=== PATIENT | male | born 1970 | race Caucasian/White ===

== ENCOUNTER 2020-04-03 17:39 | Emergency (ER) | payer OTHER, SELFPAY ==
[2020-04-03 18:14] VITALS: BP 95/61; PULSE 105; RESP 18; TEMP 37.4; O2SAT 100; BMI 24.2
--- NOTE | 2020-04-03 20:06 | ED_ITS ---
HPI - Skin/Abscess/Foreign Bdy General Chief complaint: Skin/Abscess/Foreign Body Stated complaint: rash History of Present Illness HPI narrative: Patient presents to the ED for rash on both upper extremities. Patient states rash is itchy. Patient [place] woke [place] with rash is on both upper extremities. Patient states no swelling of lips, swelling of tongue, sensation of throat closing, chest pain, or shortness of breath. Related Data Previous Rx's Medication Instructions Recorded hydrocortisone 1 applic TOPICAL BID #30 g 04/03/20 Allergies Allergy/AdvReac Type Severity Reaction Status Date / Time No Known Allergies Allergy Mild NOT Verified 03/23/20 08:21 APPLICABLE Review of Systems Review of Systems: Patient presents to ED for bilateral upper extremity rash that is itchy. Patient denies any fever, chills, swelling of upper extremities, nausea, vomiting, neck stiffness, headache, dizziness, swelling of lips, swelling of tongue, sensation of throat closing, abdominal pain, chest pain, shortness of breath, diarrhea, vomiting, paralysis, numbness /tingling, headache, or any other concerning symptoms. Yes all other systems are reviewed and are negative [facility] Past Medical History Surgical History History of removal of neck cyst Hx of heart artery stent Family History Family History (Updated 03/23/20 @ 08:24 by Deedee Vega PENDING SALE TO [facility]) Father Cancer Mother Diabetes Hypertension CVD (cardiovascular disease) Brother Myocardial infarction Social History Social History Alcohol intake: current Alcohol type: beer, wine and hard liquor Smoking Status: Current every day smoker Smoked in Last 30 Days: Yes Use of substances other than those prescribed or required for medical reasons: No Advance Directives: No Advance Directives Information Provided: No Physical Exam Vital Signs: Vital Signs: Vital Signs Temp Pulse Resp BP Pulse Ox 04/03/20 18:14 99.3 F 105 H 18 95/61 100 Body Mass Index 24.2 Const: General: cooperative, healthy appearing, comfortable and no acute distress Orientation/consciousness: oriented to person, oriented to place, oriented to time and patient oriented x3 HENMT: Other: Negative for any swelling of lips, tongue, or uvula Head: Yes normal to inspection Eyes: General: appearance normal, both eyes and all related structures Neck: Neck: Yes normal visual inspection, Yes full ROM, Yes no lymphadenopathy, Yes no meningeal signs, No positive Brudzinski's sign and No positive Kernig's sign Chest: Chest palpation & inspection: normal inspection of the chest and normal palpation of entire chest wall Resp: Effort & Inspection: normal respiratory effort and no audible wheezes Auscultation: clear to auscultation bilaterally, no crackles, no rales, no rhonchi and no wheezes Cardio: Jugular venous distension: no JVD Heart sounds: S1 normal heart sound present GI: Inspection: Yes normal to inspection Palpation (GI): Soft to palpation, not firm, nontender, no guarding and not rigid : General: No CVA tenderness and Yes no CVA tenderness Back/Spine/Pelvis: Back: no CVA tenderness, No CVA tenderness and No back tenderness Skin: Other: positive for dermatitis like rash on both upper extremities. Ne gative for any warm erythema to indicate cellulitis. Negative for any bull's eye rash to indicate tick bite. Neuro: General: oriented to person, oriented to place, oriented to time, patient oriented x3, gait normal, no meningeal signs and CN's II-XI intact bilaterally Cranial nerves: Yes CN's II-XII intact bilaterally Extrem: General: Yes normal to inspection and Yes full ROM Psych: Appearance: grossly normal, well kempt and not disheveled Course Course Course Narrative: History physical exam indicate contact dermatitis. Patient will be discharged with steroid. Reevaluation(s) Reevaluation #1: Patient is safe for discharge. MDM - Skin/Abscess/Foreign Bdy MDM Narrative Medical decision making narrative: History physical exam does not indicate cellulitis, tick bite, DVT, or deformity to indicate fracture. Discharge Plan Discharge Clinical Impression: Contact dermatitis Patient Disposition: Home, Self-Care Instructions: Contact Dermatitis (ED) Additional Instructions: return to the ED immediately for any worsening of rash, swelling of extremities, redness, pus discharge, foul odor, fever, chills, chest pain, shortness of breath, bluish discoloration of fingers, or any other concerning symptoms. Please follow-up with the PCP Prescriptions: New hydrocortisone 2.5 % cream 1 applic topical BID Qty: 30 RF: 0 Referrals: Omega Fu MD [Primary Care Provider] - 2 days ( contact dermatitis) Interventions: ED Discharge Assessment Last Done: 04/03/20 20:27 Discharge Date/Time: 04/03/20 20:29 Print Language: Divehi
== END 2020-04-03 20:29 | disposition home or self-care (01) ==
PROVIDERS: Emergency Provider Emergency Medicine Emergency Medical Services; PCP Internal Medicine
DX: L25.9 Unspecified contact dermatitis, unspecified cause (principal); F17.200 Nicotine dependence, unspecified, uncomplicated
CPT/HCPCS: 99283; 99284